=== PATIENT | female | born 1985 | race Caucasian/White ===

== ENCOUNTER 2024-01-24 10:48 | Emergency (ER) | payer BC, SELFPAY ==
[2024-01-24 10:52] VITALS: BP 155/89
--- NOTE | 2024-01-24 11:30 | ED.GENMED ---
History of Present Illness
General
Chief Complaint: Abdominal Symptoms
Source: patient
Exam Limitations: none
Time Seen by Provider: 01/24/24 10:57
Nursing documentation reviewed up to this point in time: agreed with
History of Present Illness
History of Present Illness:
38-year-old female with a past medical history of hypertension, hyperlipidemia, asthma, prior history of C. difficile infection presents to the emergency room for evaluation of abdominal pain and diarrhea. Patient reports that she started getting
sick with viral URI symptoms a little over a week ago and then 7 days ago started with diarrhea and she says she has had 10+ daily episodes of liquid diarrhea since. No blood in her diarrhea. She denies any nausea or vomiting. She says she does
get crampy abdominal pain and it has been mostly in the left lower quadrant also for the past week. She says that she has a history of C. difficile infection in the past after she was treated for strep throat with antibiotics. She says that
because of the amount of diarrhea she was worried it could be C. difficile once again and so she went to urgent care initially to be assessed. She was referred from urgent care to the emergency room to be further evaluated. She denies any fever or
chills. She denies any urinary symptoms. Denies any other complaints. She denies any recent antibiotics. Denies any recent travel.
Review of Systems
Review of Systems
All Other Systems: ROS reviewed and negative except as documented in HPI and ROS
Constitutional: Denies fever
Respiratory: Denies trouble breathing
Cardiac: Denies chest pain
ABD/GI: Reports abdominal pain and diarrhea; Denies vomiting, bloody stools or black stools
: Denies dysuria, frequency or flank pain
Musculoskeletal: Denies neck pain or back pain
Phy Exam
Physical Exam
Physical Exam:
General: Awake, alert, oriented x3; no acute distress
Head: Normocephalic, atraumatic
Eyes: Conjunctiva normal, EOMI
Throat: Airway intact, mucous membranes appear moist
Neck: Trachea midline, supple without meningismus
Lungs: Clear to auscultation bilaterally, no wheezing, rales, rhonchi
Heart: Regular rate and rhythm, no murmurs, gallops, or rubs
Abd: Soft, non distended, mildly tender left lower quadrant with no peritoneal signs
Neuro: No gross deficits
Skin: no rash
Extremities: No edema in extremities, warm and well-perfused
Scores
Heart Failure Risk
Heart Failure Risk Score: Not Applicable
Heart Score for Chest Pain Patients
STEMI patient?: Not applicable
Withdrawal Assessment of Alcohol
Withdrawal Assessment Completed?: Not applicable
Course
Orders/Labs/Results
Orders:
Orders
01/24/24 11:11
Iohexol [Omnipaque] See Protocol PO NOW STA
01/24/24 11:13
Test Result ONCE
01/24/24 11:18
CT Abd/pel Without Iv Or Oral Urgent
Comment:
Reason For Exam: LLQ abd pain
01/24/24 11:24
Complete Blood Count/With Diff Urgent
Comprehensive Metabolic Panel Urgent
HCG, Serum Qualitative Screen Urgent
STOOL [C difficile Antigen & Toxins] Urgent
CHAD Source: Feces/Stool
Specimen Description:
Date Specimen was Collected: 01/24/24
Time Specimen was Collected: 11:23
Stool Culture Urgent
CHAD Source: Feces/Stool
Specimen Description:
Date Specimen was Collected: 01/24/24
Time Specimen was Collected: 11:23
Abnormal Lab Results
01/24/24
11:24
WBC 3.7 L 10^3/uL
(4.8-10.8)
Monocytes % 11.8 H %
(1.7-9.3)
Eosinophils % 6.1 H %
(0-6)
AST 39 H U/L
(14-36)
01/24/24 11:24
01/24/24 11:24
Vital Signs
Initial and Last Documented VS:
Initial Vital Signs
Temp Pulse Resp BP Pulse Ox
36.4 C 61 18 155/89 100
01/24/24 10:52 01/24/24 10:52 01/24/24 10:52 01/24/24 10:52 01/24/24 10:52
Last Documented Vital Signs
Temp Pulse Resp BP Pulse Ox
36.4 C 64 16 141/87 97
01/24/24 10:52 01/24/24 13:54 01/24/24 13:54 01/24/24 13:54 01/24/24 13:54
MDM/Problems Addressed
Differential Diagnosis Includes:
C. difficile/infectious colitis, gastroenteritis, diverticulitis
MDM/Problems Addressed:
38-year-old female presents with profuse diarrhea and crampy left lower quadrant abdominal pain for the past week that was preceded by mild viral URI symptoms. Hypertensive otherwise normal vitals. Exam as above. Check labs including a CBC and a
CMP. Will check an hCG. Will check stool studies including C. difficile. Provide IV fluids. Check CT abdomen pelvis. Reassess after the above.
Patient reports that she has a severe anaphylactic reaction to IV contrast. She had such a severe reaction past that she is even hesitant to attempt p.o. contrast�discussed with radiologist and although risk of reaction from oral contrast in
patients with IV dye allergy is quite low it is not 0 risk. Discussed with radiology and will instead proceed with noncontrast study.
Labs reviewed: CBC shows slight leukopenia with a WBC of 3.7 which at least suggests a viral process, CMP no clinically significant abnormalities. hCG negative. CT shows no acute pathology. Patient's C. difficile was negative here. At this point
clinical suspicion is for viral enteritis/colitis. She has no electrolyte derangements despite her report of profuse diarrhea. I encouraged her to continue good p.o. hydration. Suggested trial of Imodium or Pepto-Bismol. I think she is stable
for discharge at this point. She feels comfortable with this plan. Spoke about return precautions and all questions answered.
*Radiology
Radiology exam reviewed: radiology read reviewed
*Pulse Oximetry
Patient hypoxic: no
*Critical Care Note
Total Time (30-74mins, 75-104mins- exclusive of procedures): Not Applicable
Data Reviewed
Source: patient and records
Patient Management
Discussion with other providers: Radiologist (Discussed with radiologist)
ED Attending Note
-
Portions of this chart may have been created with voice recognition software.� Occasional wrong word or��sound alike� substitutions may have occurred due to the inherent limitations of voice recognition software.
Discharge Plan
Departure
Patient Disposition: Home (Routine Discharge)
Date of Disposition: 01/24/24
Time of Disposition: 13:43
Patient with high blood pressure during this ER visit?: Yes
Discharge Problem:
Abdominal pain, Diarrhea
Instructions: Diarrhea in teens and adults, [place] Diet, Abdominal Pain
Referrals:
Rebekah Evans MD [Active] - Call in 1-3 days for appt
Salas Sosa MD [Family Provider] -
Activity Restrictions/Additional Instructions:
Thank you for visiting the Emergency Department at [facility].
1. Please schedule a follow up appointment as directed. Call first thing tomorrow morning to make an appointment.
2. If indicated, please take your medications as instructed and indicated on discharge paperwork.
3. If any of your symptoms do not improve, or persist, or become more severe within 6-12 hours, please return to the emergency department for further care.
4. Please return to the emergency department if you develop a headache, neck pain/stiffness, fever greater than 100.4F, chest pain, shortness of breath, persistent nausea, vomiting, slurred speech, difficulty walking, numbness/tingling, weakness,
signs of infection or any other symptoms that are worrisome to you.
Please call [phone] if you have any questions.
Interventions
Interventions:
*Risk Screen - Suicide Last Done: 01/24/24 10:52
*General Assessment Last Done: 01/24/24 10:52
*Neglect/Abuse Screening Last Done: 01/24/24 10:52
ED- Fall Risk Assessment Last Done: 01/24/24 10:57
*ED COVID-19 Vaccine History Last Done: 01/24/24 10:52
*Nursing Disposition Last Done: 01/24/24 13:54
NB-Fqlvzr-Gpulzzbrsf Assessment Last Done: 01/24/24 10:57
Discharge Date and Time
Discharge Date/Time: 01/24/24 13:57
Print Language: GIBRALTARIAN
[2024-01-24 11:42] LABS: % Basophils 1.1 % (0-2); % Eosinophils 6.1 % (0-6); % Lymphocytes 34.2 % (20.5-51.1); % Monocytes 11.8 % (1.7-9.3); % Neutrophils 46.8 % (42.2-75.2); Absolute Eosinophils 0.2 10^3/uL (0-0.7); Absolute Lymphocytes 1.3 10^3/uL (1.2-3.4); Absolute Monocytes 0.4 10^3/uL (0.1-0.6); Absolute Neutrophils 1.8 10^3/uL (1.4-6.5); Hematocrit 38.8 % (37.0-47.0); Mean Corp Hgb Conc. 33.5 g/dL (33.0-37.0); Mean Corpuscular Hgb 28.1 pg (27.0-31.0); Mean Corpuscular Volume 83.8 fL (81.0-99.0); Nucleated Red Blood Cells % 0 %; Platelet Count 240 10^3/uL (130-400); Red Blood Cell Count 4.63 10^6/uL (4.20-5.40); Red Cell Dist. Width 12.8 % (11.5-14.5); White Blood Cell Count 3.7 10^3/uL (4.8-10.8)
[2024-01-24 11:56] LABS: HCG, Serum Qualitative Screen Negative
[2024-01-24 11:58] LABS: ALT (SGPT) 34 U/L (0-35); AST (SGOT) 39 U/L (14-36); Albumin 4.9 g/dl (3.5-5.0); Alkaline Phosphatase 58 U/L (38-126); Blood Urea Nitrogen 11 mg/dl (7-17); Calcium 10.2 mg/dl (8.4-10.2); Carbon Dioxide 28 mmol/L (22-30); Chloride 103 mmol/L (98-107); Glucose 96 mg/dl (70-99); Potassium 4.7 mmol/L (3.5-5.1); Sodium 138 mmol/L (135-145); Total Bilirubin 0.7 mg/dl (0.2-1.3); Total Protein 7.5 g/dl (6.3-8.2); eGFR > 60.00
[2024-01-24 12:17] VITALS: BP 148/78
[2024-01-24 13:54] VITALS: BP 141/87
== END 2024-01-24 13:57 | disposition home or self-care (01) ==
LOC: EMR 10:48
PROVIDERS: EMERGENCY PHYSICIAN Emergency Medicine; FAMILY PHYSICIAN Internal Medicine
DX: R19.7 Diarrhea, unspecified (principal); R10.32 Left lower quadrant pain; I10 Essential (primary) hypertension; E78.5 Hyperlipidemia, unspecified; J45.909 Unspecified asthma, uncomplicated
CPT/HCPCS: 99284; 74176; 80053; 84703; 85025; 87045; 87046; 87324; 87427; 87449

== ENCOUNTER 2024-10-28 14:01 | Observation (INO) | payer BC, SELFPAY ==
[2024-10-28 10:04] VITALS: BP 131/81
[2024-10-28 10:34] LABS: % Eosinophils 1.4 % (0-6); % Immature Granulocytes 0.2 % (0-0.5); % Lymphocytes 25.6 % (20.5-51.1); % Monocytes 8.1 % (1.7-9.3); % Neutrophils 63.7 % (42.2-75.2); Absolute Eosinophils 0.1 10^3/uL (0-0.7); Absolute Lymphocytes 1.1 10^3/uL (1.2-3.4); Absolute Monocytes 0.3 10^3/uL (0.1-0.6); Absolute Neutrophils 2.7 10^3/uL (1.4-6.5); Hematocrit 37.9 % (37.0-47.0); Hemoglobin 12.4 g/dL (12.0-16.0); Mean Corp Hgb Conc. 32.7 g/dL (33.0-37.0); Mean Corpuscular Hgb 28.3 pg (27.0-31.0); Mean Corpuscular Volume 86.5 fL (81.0-99.0); Mean Platelet Volume 9.9 fL (7.4-10.4); Nucleated Red Blood Cells % 0 %; Platelet Count 225 10^3/uL (130-400); Red Blood Cell Count 4.38 10^6/uL (4.20-5.40); Red Cell Dist. Width 12.6 % (11.5-14.5); White Blood Cell Count 4.2 10^3/uL (4.8-10.8)
[2024-10-28 10:41] LABS: HCG, Serum Qualitative Screen Negative
[2024-10-28 10:45] LABS: ALT (SGPT) 16 U/L (0-35); AST (SGOT) 21 U/L (14-36); Albumin 4.2 g/dl (3.5-5.0); Alkaline Phosphatase 49 U/L (38-126); Blood Urea Nitrogen 12 mg/dl (7-17); Calcium 9.8 mg/dl (8.4-10.2); Carbon Dioxide 30 mmol/L (22-30); Chloride 101 mmol/L (98-107); Glucose 115 mg/dl (70-99); Potassium 4.8 mmol/L (3.5-5.1); Sodium 138 mmol/L (135-145); Total Bilirubin 0.7 mg/dl (0.2-1.3); Total Protein 6.9 g/dl (6.3-8.2); eGFR > 60.00
[2024-10-28 11:57] VITALS: BP 124/77
--- NOTE | 2024-10-28 12:04 | ED.GENMED ---
History of Present Illness
General
Chief Complaint: Dizziness
Time Seen by Provider: 10/28/24 11:50
History of Present Illness
History of Present Illness:
39-year-old female with history of hypertension, hyperlipidemia, and prior cerebellar stroke presents the emergency department for evaluation of severe vertigo and tinnitus as well as hearing loss for the last 4 days. Vertigo seems to improve when
at rest however is not fully resolved and she is having difficulty ambulating secondary to symptoms. Saw her outpatient neurologist today who sent her to the ED for MR imaging. No chest pain or shortness of breath. Denies illicit substance use.
She is maintained on aspirin and statins for her prior stroke
Review of Systems
Review of Systems
Allergies reviewed?: Yes
All Other Systems: ROS reviewed and negative except as documented in HPI and ROS
Phy Exam
Physical Exam
Physical Exam:
GEN: Well appearing, NAD, WDWN
HEENT: Oral mucosa moist, no scleral icterus, no nasal congestion
Cardiac: Regular rate
Lung: No respiratory distress, no tachypnea
MSK: No gross deformity or injuries
Skin: Good color, no pallor or jaundice, no rashes
Neuro: AO x3; CN II-XII grossly intact. BUE strength 5/5 in all martin, sensation intact and symmetric. BLE strength 5/5 in all martin, sensation intact and symmetric. No nystagmus
Psych: Calm, cooperative
Course
Orders/Labs/Results
Orders:
Orders
10/28/24 Breakfast
Cholesterol Lowering
At Your Request: Full Participation
Does patient need a safe tray?: No
Cholesterol Lowering: Sodium, 2 Gram
10/28/24 10:09
Test Result ONCE
10/28/24 10:19
Complete Blood Count/With Diff Urgent
Comprehensive Metabolic Panel Urgent
HCG, Serum Qualitative Screen Urgent
10/28/24 13:27
MR Brain W/o & With Contrast Urgent
Comment:
Reason For Exam: vertigo, difficulty
Recent pill cam endoscopy?: No
MR Cervical Spine Without & W Urgent
Comment:
Reason For Exam: pathological hyperreflexia b/l LE
Recent pill cam endoscopy?: No
10/28/24 13:32
Admit/Transfer Patient As Directed
Co-Sign Provider:
Level of Care: Observation services
Assign to:: Telemetry
Physician / Group: preston
Diagnosis: peripheral vertigo
Reason for Telemetry: Arrhythmia
Date to Stop Telemetry: 10/31/24
Time to Stop Telemetry: 11:00
10/28/24 13:33
PRN Pain Medication Management As Directed
May give lesser potent ordered pain med per pt: Yes
preference::
Protocol:: Medication orders for pain may be administered in a
manner that supports deferring to patient preference
when the pt is:
- Requesting an ordered lesser potent pain medication.
Least to most potent pain medications are defined
as: acetaminophen < NSAID < tramadol < opioids
(morphine, oxycodone, hydromorphone).
- Requesting a lesser dose of the same medication IF
ORDERED.
- Requesting a less intrusive route of administration
if both routes are prescribed by the provider (PO <
IV).
10/28/24 13:34
Code Status As Directed
Resuscitation Status: Full Code
10/28/24 13:42
SAMEERA, IgG Reflex to HEp-2 [S] Routine
B12 [Vitamin B12] Routine
CRP [C-Reactive Protein] Routine
D-Dimer Routine
Magnesium Routine
TSH Reflex To Free T4 Routine
10/31/24 11:00
DC Protocol for Telemetry ONCE
Abnormal Lab Results
10/28/24
10:19
WBC 4.2 L 10^3/uL
(4.8-10.8)
MCHC 32.7 L g/dL
(33.0-37.0)
Absolute Lymphs (auto) 1.1 L 10^3/uL
(1.2-3.4)
Glucose 115 H mg/dl
(70-99)
10/28/24 10:19
10/28/24 10:19
Vital Signs
Initial and Last Documented VS:
Initial Vital Signs
Temp Pulse Resp BP Pulse Ox
98.2 F 76 16 131/81 99
10/28/24 10:04 10/28/24 10:04 10/28/24 10:04 10/28/24 10:04 10/28/24 10:04
Last Documented Vital Signs
Temp Pulse Resp BP Pulse Ox
98.2 F 79 18 125/76 98
10/28/24 10:04 10/28/24 15:12 10/28/24 15:12 10/28/24 15:12 10/28/24 15:12
MDM/Problems Addressed
MDM/Problems Addressed:
After consultation with neurology will admit for further management and MRI
*Critical Care Note
Total Time (30-74mins, 75-104mins- exclusive of procedures): Not Applicable
ED Attending Note
-
Portions of this chart may have been created with voice recognition software.� Occasional wrong word or��sound alike� substitutions may have occurred due to the inherent limitations of voice recognition software.
Discharge Plan
Departure
Patient Disposition: Admit
Date of Disposition: 10/28/24
Time of Disposition: 13:06
Admit to: Med/Surg
Presentation/result/management discussed w/ accepting MD/DO: Hospitalist
Discharge Problem:
Vertigo
Interventions
Interventions:
*Risk Screen - Suicide Last Done: 10/28/24 10:04
*General Assessment Last Done: 10/28/24 10:04
*Neglect/Abuse Screening Last Done: 10/28/24 10:04
*ED- Fall Risk Assessment Last Done: 10/28/24 10:59
*ED COVID-19 Vaccine History Last Done: 10/28/24 10:04
ED- Neurological Assessment Last Done: 10/28/24 11:02
ED Swallowing Screen Last Done: 10/28/24 11:02
--- NOTE | 2024-10-28 12:15 | CON.NEURO ---
Consultation
Order
Date of Consultation: 10/28/24
Requesting Provider: Lovely SANDERS
Reason for Consult: Vertigo
Neurology Consultation Note.
HPI: This is a 39-year-old right-handed woman who presented to [facility]
The patient reports experiencing vertigo and tinnitus for the past 4 days. The vertigo is described as constant, worse with with turning her head to the left or right and associated nausea and imbalance.
The patient also reports a current headache. She has a history of migraines with aura. The patient is not currently on any prophylactic or rescue regimen for her migraines, stating she tries not to take anything due to medication interactions with
her blood pressure treatment.
The patient's medical history of radiographic infarcts?. She has a long-standing history of hypertension since her twenties, currently treated with labetalol. The patient also mentions a history of high cholesterol since childhood.
Recently, the patient had a change in her blood pressure medication. She was taken off valsartan due to dizziness and her labetalol dose was doubled. She has a loop recorder implanted about a year ago, with no reported events.
Ms. Lopez was recently seen by ENT and was diagnosed with right otosclerosis and hearing impairment.
ER VS: 124/77, 67, 16, afebrile.
PDMP:Lorazepam 0.5 Mg 30 tablets filled in on 09/24/24, 08/05/2024
Labs: WBCs�4.2, absolute lymphocyte count�1.1, normal sodium, glucose�115, normal sodium,
PMH:HTN, DLP, migraine with aura, right otosclerosis, Raynaud's phenomena
PSH: ILR, reduction mammoplasty
SH: , has 2 children, works in elementary school, non-smoker, no history excessive alcohol
FH: Father from leukemia at the age of 70, mother�skin cancer
All: Iodine, Reglan
ROS: Constitutional: Negative. Negative for chills, fever and unexpected weight change.
HENT: Positive for hearing impairment, R tinnitus, vertigo
Eyes: Negative. Negative for photophobia, pain and visual disturbance.
Respiratory: Negative for cough, choking and shortness of breath.
Cardiovascular: Negative for chest pain, palpitations and leg swelling.
Gastrointestinal: Negative for abdominal pain and vomiting.
Endocrine: Negative. Negative for cold intolerance.
Genitourinary: Negative for dysuria, flank pain and urgency.
Musculoskeletal: Negative for back pain, gait problem, neck pain and neck stiffness.
Skin: Negative for rash.
Allergic/Immunologic: Negative. Negative for immunocompromised state.
Neurological: Negative for dizziness, tremors, seizures, speech difficulty, numbness and headaches.
Psychiatric/Behavioral: Positive anxiety
General: Well developed. In no acute distress.
Cardio: Regular rate and rhythm without murmur. Extremities are without cyanosis or edema.
Neuro:
Mental Status: Alert, oriented to person, place, and date. Normal attention and recall. Good fund of knowledge. Follows complex requests across the midline. Comprehension, naming, and repetition intact. Depressed mood
Cranial Nerves: Pupils are equally round and reactive to light. EOMs full. Visual martin full to confrontation. No ptosis. No nystagmus. V1-V3 intact to light touch and pinprick bilaterally, symmetric. Face symmetric. Normal hearing AU. The
palate elevated well. SCMs and traps 5/5. Tongue midline. No dysarthria.
Motor: Normal bulk and tone. No pronator or arm drift. Strength 5/5 throughout. No clonus.
Reflexes: 3+ throughout the upper extremities and knees. 4/2 in AJs. Plantar responses flexor bilaterally. Gomez's�positive bilaterally
Sensory: Normal vibration and JPS.
Coordination: No dysmetria or tremor.
Gait: Normal stance, stride, difficulties jumping on the left foot.
Assessment and Plan:
I. Probably peripheral vertigo
II. Pathological hyperreflexia
III. JOSE A, MDD
- Continue Telemetry monitoring
- Please obtain brain and C-spine MRI with and without gadolinium
- Meclizine 25 mg every 8 hours as needed, lorazepam 0.5 mg
- Aspirin 81 mg once a day
- Please obtain medical records from patient's neurologist
- PT
- DVT prophylaxis.
I personally reviewed all radiology and labs along with past medical records pertinent to current medical problems. Total time spent in patient care is 60 minutes.
Thank you for allowing us to participate in the care of this patient. We will continue to follow. Please do not hesitate to contact us with any questions or concerns.
Subjective/Objective
Subjective Data
Date of Service: October 28, 2024
Objective Data
Vital Signs
Temp Pulse Resp BP Pulse Ox
36.8 C 67 16 124/77 100
10/28/24 10:04 10/28/24 11:57 10/28/24 12:03 10/28/24 11:57 10/28/24 11:57
Lab Results
10/28/24 10:19
10/28/24 10:19
Sodium 138 mmol/L (135-145) 10/28/24 10:19
Potassium 4.8 mmol/L (3.5-5.1) 10/28/24 10:19
BUN 12 mg/dl (7-17) 10/28/24 10:19
Glucose 115 mg/dl (70-99) H 10/28/24 10:19
Calcium 9.8 mg/dl (8.4-10.2) 10/28/24 10:19
Patient Allergies
Iodinated Contrast Media Allergy (Mild, Verified 10/28/24 10:08)
Unknown
metoclopramide [From Reglan] Allergy (Mild, Verified 10/28/24 10:08)
Vomiting
Vital Signs and Labs
-
Vital Signs and Labs:
Vital Signs
Temp Pulse Resp BP Pulse Ox
36.8 C 67 16 124/77 100
10/28/24 10:04 10/28/24 11:57 10/28/24 12:03 10/28/24 11:57 10/28/24 11:57
Lab Results
10/28/24 10:19
10/28/24 10:19
Sodium 138 mmol/L (135-145) 10/28/24 10:19
Potassium 4.8 mmol/L (3.5-5.1) 10/28/24 10:19
BUN 12 mg/dl (7-17) 10/28/24 10:19
Glucose 115 mg/dl (70-99) H 10/28/24 10:19
Calcium 9.8 mg/dl (8.4-10.2) 10/28/24 10:19
--- NOTE | 2024-10-28 13:07 | HPS.HSE ---
Addendum entered and electronically signed by JASSON Hernández 10/28/24 19:37:
39 year old not 1 year old .
Original Note:
Family Physician
-
Family Physician: Salas Sosa
Chief Complaint
-
39 year old with PMH for Stroke, HTN, anxiety presented with
History of Present Illness
1-year-old female with history of hypertension, hyperlipidemia, and prior cerebellar stroke presents the emergency department for evaluation of severe vertigo and tinnitus as well as hearing loss for the last 4 days. yesterday she felt the spinning
sensation. today she as more off balance. she as complained of b/l hand weakness. she is complaining of frontal and back headache. denied fever, chills, chest pain, sob. denied abdominal pain vomiting or diarrhea. denied dysuria or hematuria. Saw
her outpatient neurologist today who sent her to the ED for MR imaging.
admitting for further management.
Medical History
Past Medical History
Past Medical History: Reports Other
Additional Past Medical History:
HTn
HLD
anxiety
CVA
Past Surgical History: Reports Other
Additional Past Surgical History:
tonsillectomy
breast reduction
loop recorder
Social History
Tobacco: Non-smoker
Alcohol: None
Drug: None
Personal:
Living: With Family
Family History
Family History: Not pertinent
Allergies / Home Medications
Allergies reflects when Allergies were last updated in [employer].
Home Medications with original date entered in [employer]
Allergy/Medication List:
Allergies
Allergy/AdvReac Type Severity Reaction Status Date / Time
Iodinated Contrast Media Allergy Mild Unknown Verified 10/28/24 10:08
metoclopramide [From Reglan] Allergy Mild Vomiting Verified 10/28/24 10:08
Review of Systems
-
Constitutional: Reports No Symptoms
EENT: Reports No Symptoms
Respiratory: Reports No Symptoms
Cardiac: Reports No Symptoms
Abdomen/GI: Reports No Symptoms
: Reports No Symptoms
Musculoskeletal: Reports No Symptoms
Skin: Reports No Symptoms
Neurological: Reports Dizzy, Headache and Weakness
Endocrine: Reports No Symptoms
Hematologic/Lymphatic: Reports No Symptoms
Psych: Reports No Symptoms
Physical Exam
Vital Signs
Vital Signs
Temp Pulse Resp BP Pulse Ox
98.2 F 67 16 124/77 100
10/28/24 10:04 10/28/24 11:57 10/28/24 12:03 10/28/24 11:57 10/28/24 11:57
Physical Exam
General: Well Developed, Well Nourished and No Apparent Distress
HEENT: NormoCephalic, Moist mucous membranes and Atraumatic
Respiratory: Clear
Cardiac: S1/S2 and Regular Rhythm; No Murmur or Rub
GI: Soft, Non Tender, Non Distended and Normal Bowel Sounds; No Organomegaly
Rectal: Deferred by Provider
Musculoskeletal: No Clubbing, No Cyanosis and No Edema
Skin: No Rash
Neuro: AO x 3 and Nonfocal/grossly intact
Psych: Calm
Laboratory Results
-
10/28/24 10:19
10/28/24 10:19
Laboratory Results
Total Bilirubin 0.7 mg/dl (0.2-1.3) 10/28/24 10:19
AST 21 U/L (14-36) 10/28/24 10:19
ALT 16 U/L (0-35) 10/28/24 10:19
Alkaline Phosphatase 49 U/L (38-126) 10/28/24 10:19
Data Reviewed
-
Lab Data: Labs Reviewed by me
Impression/Plan
-
#possible peripheral vertigo
- obtain MRI and C spine MRI
-meclizine prn
-lorazepam
-asa
-PT/OT
-neurology following patient
#essential HTN
-labetalol continued with hold parameter
#anxiety
-Prozac continued
#HLD
-statin continued
#DVT prophylaxis
-scd
#CODE status
-full code
--- NOTE | 2024-10-28 13:10 | W.PN.UPDATE ---
Update Note
Progress Note Update
This is an addendum to H&P written by CATALYST RECOVERY OPERATOR Katia English
I saw and examined the patient.
The CATALYST RECOVERY OPERATOR's note was reviewed and I agree with the note.
Comment:
Ms. Julian Lopez is a 39 yo woman with hx essential HTN, HLD, asthma, cerebellar CVA presents to the ER with vertigo.
Triage VS: T 98.2, P 76, RR 16, BP 131/81, SpO2 99%
On exam patient is awake, alert, in no distress; CV: S2, S2, RRR; Chest clear, no LE swelling. DALLIN, no facial asymmetry, tongue protrusion midline, no pronator drift, 5/5 strength upper and lower extremities, FNF WNL, no nystagmus
LABS: WBC 4.2, Hg 12.4, PLT 225, Na 138, K+ 4.8, CO2 30, BUN 12, Cr 0.7, Ca 9.8, T. Bili 0.7, AST 21, ALT 16
HCG negative
Vertigo
Hx Cerebellar CVA on imaging
-appreciate neurology eval
-admit to observation, telemetry
-MRI Brain w and w/out contrast; C Spine w and w/out contrast (given hyperreflexia b/l LE)
-neuro checks
-continue FLEXBOARD OPERATOR asa/statin
Essential HTN
HLD
*awaiting home med rec
DVT PPx
FULL CODE
[2024-10-28 14:11] LABS: Magnesium 2.1 mg/dl (1.6-2.3)
[2024-10-28 14:16] LABS: C-Reactive Protein < 5.00 mg/L (0.0-10.00)
[2024-10-28 14:46] LABS: TSH Reflex To Free T4 1.08 uIU/ml (0.47-4.68)
[2024-10-28 15:05] LABS: Vitamin B12 529 pg/ml (239-931)
[2024-10-28 15:06] LABS: D-Dimer < 0.27 ug/mlFEU (0.00-0.50)
[2024-10-28 15:11] VITALS: BMI 23.4
[2024-10-28 15:12] VITALS: BP 125/76
[2024-10-28 17:50] VITALS: BP 117/84
[2024-10-28 17:51] VITALS: BMI 23.0
[2024-10-28] MEDS: CRESTOR 40 MG PO (18:18)
[2024-10-28] MEDS: TYLENOL 650 MG PO (18:18)
[2024-10-28] MEDS: ANTIVERT 25 MG PO (18:18)
--- NOTE | 2024-10-28 18:30 | PTCARENOTE ---
Arrived to unit from ED and ambulated to bed. Complains of headache at this time. Tylenol and meclizine given. Oriented to room. Call cardona within reach.
[2024-10-28 19:30] VITALS: BP 114/71
[2024-10-28] MEDS: ASPIR LOW (ENTERIC COATED) 81 MG PO (20:49)
[2024-10-28] MEDS: TRANDATE 200 MG PO (20:49)
[2024-10-28 23:43] VITALS: BP 109/73
[2024-10-29 03:55] VITALS: BP 117/68
[2024-10-29 07:45] VITALS: BP 122/69
[2024-10-29] MEDS: TRANDATE 200 MG PO (09:32)
[2024-10-29] MEDS: PROZAC 60 MG PO (09:33)
--- NOTE | 2024-10-29 10:28 | W.PN.NEURO.1 ---
Today's Communication / Plan
-
.
Subjective/Objective
Subjective Data
Date of Service: October 29, 2024
Neurology follow-up note.
Ms. Lopez reports improvement of her vertigo since admission. Brain MRI showed chronic right cerebellar infarct. C-spine MRI showed no cord abnormalities.
CRP, vitamin B12, TFTs, magnesium, D-dimer�unremarkable.
PMH:HTN, DLP, migraine with aura, right otosclerosis, Raynaud's phenomena
PSH: ILR, reduction mammoplasty
SH: , has 2 children, works in elementary school, non-smoker, no history excessive alcohol
FH: Father from leukemia at the age of 70, mother�skin cancer
All: Iodine, Reglan
ROS: Constitutional: Negative. Negative for chills, fever and unexpected weight change.
HENT: Positive for hearing impairment, R tinnitus, vertigo
Eyes: Negative. Negative for photophobia, pain and visual disturbance.
Respiratory: Negative for cough, choking and shortness of breath.
Cardiovascular: Negative for chest pain, palpitations and leg swelling.
Gastrointestinal: Negative for abdominal pain and vomiting.
Endocrine: Negative. Negative for cold intolerance.
Genitourinary: Negative for dysuria, flank pain and urgency.
Musculoskeletal: Negative for back pain, gait problem, neck pain and neck stiffness.
Skin: Negative for rash.
Allergic/Immunologic: Negative. Negative for immunocompromised state.
Neurological: Negative for dizziness, tremors, seizures, speech difficulty, numbness and headaches.
Psychiatric/Behavioral: Positive anxiety
General: Well developed. In no acute distress.
Cardio: Regular rate and rhythm without murmur. Extremities are without cyanosis or edema.
Neuro:
Mental Status: Alert, oriented to person, place, and date. Normal attention and recall. Good fund of knowledge. Follows complex requests across the midline. Comprehension, naming, and repetition intact. Depressed mood
Cranial Nerves: Pupils are equally round and reactive to light. EOMs full. Visual martin full to confrontation. No ptosis. No nystagmus. V1-V3 intact to light touch and pinprick bilaterally, symmetric. Face symmetric. Normal hearing AU. The
palate elevated well. SCMs and traps 5/5. Tongue midline. No dysarthria.
Motor: Normal bulk and tone. No pronator or arm drift. Strength 5/5 throughout. No clonus.
Coordination: No dysmetria or tremor.
Gait: Normal stance, stride, difficulties jumping on the left foot.
Assessment and Plan:
I. Peripheral vertigo, right otosclerosis
II. Hyperreflexia
III. JOSE A, MDD
- Continue Telemetry monitoring
- Meclizine 25 mg every 8 hours as needed, lorazepam 0.5 mg
- Aspirin 81 mg once a day
- Outpatient neurology follow-up
I personally reviewed all radiology and labs along with past medical records pertinent to current medical problems. Total time spent in patient care is 36 minutes.
Thank you for allowing us to participate in the care of this patient. Please do not hesitate to contact us with any questions or concerns
Objective Data
Vital Signs
Temp Pulse Resp BP Pulse Ox
36.7 C 73 16 122/69 99
10/29/24 07:45 10/29/24 07:45 10/29/24 07:45 10/29/24 07:45 10/29/24 07:45
Lab Results
10/28/24 10:19
10/28/24 10:19
Sodium 138 mmol/L (135-145) 10/28/24 10:19
Potassium 4.8 mmol/L (3.5-5.1) 10/28/24 10:19
BUN 12 mg/dl (7-17) 10/28/24 10:19
Glucose 115 mg/dl (70-99) H 10/28/24 10:19
Calcium 9.8 mg/dl (8.4-10.2) 10/28/24 10:19
Vitamin B12 529 pg/ml (026-848) 10/28/24 13:42
Patient Allergies
Iodinated Contrast Media Allergy (Verified 10/28/24 17:42)
Unknown
metoclopramide [From Reglan] Allergy (Verified 10/28/24 17:42)
Vomiting
Vital Signs and Labs
-
Vital Signs and Labs:
Vital Signs
Temp Pulse Resp BP Pulse Ox
36.7 C 73 16 122/69 99
10/29/24 07:45 10/29/24 07:45 10/29/24 07:45 10/29/24 07:45 10/29/24 07:45
Lab Results
10/28/24 10:19
10/28/24 10:19
Sodium 138 mmol/L (135-145) 10/28/24 10:19
Potassium 4.8 mmol/L (3.5-5.1) 10/28/24 10:19
BUN 12 mg/dl (7-17) 10/28/24 10:19
Glucose 115 mg/dl (70-99) H 10/28/24 10:19
Calcium 9.8 mg/dl (8.4-10.2) 10/28/24 10:19
Vitamin B12 529 pg/ml (046-041) 10/28/24 13:42
Medications
-
Medications:
Generic Name Dose Route Start Last Admin
Trade Name Freq PRN Reason Stop Dose Admin
Acetaminophen 650 mg 10/28/24 17:41 10/28/24 18:18
Acetaminophen 325 Mg Tablet PO 11/25/24 17:40 650 mg
Q4HPRN PRN Administration
mild pain/SHULTZ/temp> 100.4F
Aspirin 81 mg 10/28/24 20:00 10/28/24 20:49
Aspirin 81 Mg (Enteric Coated) Tablet PO 11/25/24 19:59 81 mg
DAILY@2000 ALPA Administration
Bisacodyl 10 mg 10/28/24 17:41
Bisacodyl 10 Mg Rectal Suppository RECTAL 11/25/24 17:40
[id number] PRN
constipation
Fluoxetine HCl 60 mg 10/29/24 08:00 10/29/24 09:33
Fluoxetine 20 Mg Capsule PO 11/26/24 07:59 60 mg
DAILY ALPA Administration
Labetalol HCl 200 mg 10/28/24 20:00 10/29/24 09:32
Labetalol 200 Mg Tablet PO 11/25/24 19:59 200 mg
BID ALPA Administration
Lorazepam 0.5 mg 10/28/24 17:41
Lorazepam 0.5 Mg Tablet PO 11/25/24 17:40
Q6HPRN PRN
vertigo/anxiety
Meclizine HCl 25 mg 10/28/24 17:41 10/28/24 18:18
Meclizine 25 Mg Tablet PO 11/25/24 17:40 25 mg
Q8HPRN PRN Administration
veritgo
Polyethylene Glycol 17 grams 10/28/24 17:41
Polyethylene Glycol Powder 17 Grams Packet PO 11/25/24 17:40
DAILYPRN PRN
constipation
Rosuvastatin Calcium 40 mg 10/28/24 18:00 10/28/24 18:18
Rosuvastatin (Crestor) 40 Mg Tablet PO 11/25/24 17:59 40 mg
QPM ALPA Administration
Senna/Docusate Sodium 1 tablet 10/28/24 17:41
Docusate W/Senna (Pat-Colace) Tablet PO 11/25/24 17:40
BIDPRN PRN
constipation
Sodium Chloride 0 flush 10/28/24 18:00
Sodium Chloride 0.9% (Flush) Syringe IV 11/25/24 17:59
PER PROTOCOL ALPA
Home Medications
-
Home Medications
aspirin 81 mg tablet,delayed release 81 mg PO DAILY Blood Clot Prevention/Tx 10/28/24
fluoxetine 20 mg capsule 60 mg PO DAILY Mental Health/Anxiety 10/28/24
labetalol 200 mg tablet 200 mg PO BID Heart Disease/Condition 10/28/24
lorazepam 0.5 mg tablet 0.5 mg PO DAILYPRN PRN anxiety 10/28/24
rosuvastatin 40 mg tablet (Crestor) 40 mg PO QPM High Cholesterol 10/28/24
meclizine 25 mg tablet 25 mg PO Q8HPRN PRN veritgo 1 week #21 tabs 10/29/24
[2024-10-29 11:35] VITALS: BP 104/61
--- NOTE | 2024-10-29 11:59 | W.PN.HOSP.TC ---
Today's Communication/Plan
-
Discharge
1 week of meclizine
Follow-up OP with PCP
Assessment / Plan
Assessment / Plan
#Peripheral vertigo
#H/O cerebellar infarct
-MRI brain and C-spine were negative for new findings, demonstrated old infarct
-Continue on home statin and aspirin, evaluated by neurology
-Has improved somewhat with meclizine
-1 week of PRN meclizine, OP follow-up with PCP
#essential HTN
-labetalol continued with hold parameter
#anxiety
-Prozac continued
#HLD
-statin continued
DVT prophylaxis: scd
CODE status: full code
Anticipated Discharge: Today
Subjective/Interval History
-
Date of Service: October 29, 2024
Seen and examined at the bedside. No acute events since admission. AFVSS
MRI of C-spine and brain negative for acute findings, redemonstrated old infarct of the cerebellum
Patient denies any new complaints. Still has some vertigo but improved, would like to go home
Objective Data
-
Vital Signs:
Vital Signs
Temp Pulse Resp BP Pulse Ox
98.1 F 73 16 122/69 99
10/29/24 07:45 10/29/24 07:45 10/29/24 07:45 10/29/24 07:45 10/29/24 07:45
I&O
10/28/24 10/29/24 10/30/24
06:59 06:59 06:59
Intake Total 480 / 480
Balance 480 / 480
Review of Systems
-
History Source: Patient
All other systems: Reviewed and negative
Physical Exam
-
General: Well Developed, Well Nourished, No Apparent Distress and Comfortable
HEENT: Normocephalic, Atraumatic, Moist Mucous Membranes and Anicteric
Respiratory: Clear to Auscultation and Non Labored Respirations
Cardiac: Regular Rhythm and S1/S2; Negative Murmur, Rub or Gallop
GI: Soft, Nontender, Nondistended and Normal Bowel Sounds
Musculoskeletal: No Clubbing, No Cyanosis, No Edema and Normal Gait & Station
Skin: Warm, Dry and Normal Turgor; Negative Rash
Neuro: AO x 3, Nonfocal/Grossly Intact and Other (No nystagmus); Negative Tremors
Psych: Calm
Data Reviewed
-
MRI: Report Reviewed by me and Discussed with Physician (Neurologist)
Labs: Labs Reviewed by me and Discussed with Patient
--- NOTE | 2024-10-29 13:34 | W.DCSUMMARY ---
Discharge Summary
Discharge Data
Date of Admission: 10/28/24
Date of Discharge: 10/29/24
Total time spent discharging patient (in min): 31
-
Pending Results: No
Hospital Course
39-year-old female with hypertension, hyperlipidemia, H/O cerebellar CVA with loop recorder in place that presented to the hospital with vertigo and tinnitus of the right ear over 4 days time. Mention she felt a spinning sensation and felt more off
balance. Was evaluated by her outpatient neurologist who recommended her coming to the ED for MR imaging. Hemodynamically stable and no significant focal deficits or nystagmus on exam. Was evaluated by neurology in the hospital. MRI of brain
without contrast and C-spine without contrast redemonstrated previous cerebellar infarct however did not show any signs of new acute infarct nor bleeding nor mass effect. She was started on meclizine with improvement. Recommend that she follows up
with her neurologist and PCP. Should also follow-up with otolaryngology for consideration of treatment for M�ni�re's disease if indicated.
Discharge Plan
-
Patient Disposition: Home (Routine Discharge)
Discharge Diagnosis/Procedures: Vertigo
Inner Ear fullness
Condition: Good
Diet: Low Cholesterol and No added salt
Activity: As tolerated
Driving Restrictions: No driving for 24 hours
Bathing Restrictions: None
Blood Work: N/A
Others Tests: N/A
Activity Restrictions/Additional Instructions:
Do not drive if you are vertigo symptoms are severe
Instructions: Vertigo (a type of dizziness)
Referrals:
Salas Sosa MD [Family Provider] -
Additional Discharge Medication Instructions: Use meclizine 25 mg every 8 hours as needed for dizziness. If ineffective can increase to 50 mg every 8 hours
Prescriptions:
New
meclizine 25 mg Tablet
25 mg PO Q8HPRN PRN (Reason: veritgo) 7 Days Qty: 21 0RF
Continued
labetalol 200 mg Tablet
200 mg PO BID
aspirin 81 mg Tablet,Delayed Release (Dr/Ec)
81 mg PO DAILY
lorazepam 0.5 mg Tablet
0.5 mg PO DAILYPRN PRN (Reason: anxiety)
fluoxetine 20 mg Capsule
60 mg PO DAILY
rosuvastatin [Crestor] 40 mg Tablet
40 mg PO QPM
Discharge Orders:
Discharge Patient (As Directed); Ordered 10/29/24
Ordered By: Lm Ibanez
Discharge Date and Time
Discharge Date/Time: 10/29/24 13:05
Print Language: CROATIAN
[2024-10-31 12:44] LABS: ANA, IgG Reflex to HEp-2 None Detected (None Detected)
== END 2024-10-29 13:05 | disposition home or self-care (01) ==
LOC: 4 EAST ACU 14:01
PROVIDERS: Emergency Medicine; ADMITTING PHYSICIAN Hospitalist; ATTENDING PHYSICIAN Internal Medicine; CONSULT PHYSICIAN Psychiatry & Neurology Neurology; EMERGENCY PHYSICIAN Emergency Medicine; FAMILY PHYSICIAN Internal Medicine
DX: R42 Dizziness and giddiness (principal); I10 Essential (primary) hypertension; E78.00 Pure hypercholesterolemia, unspecified; H93.11 Tinnitus, right ear; R26.2 Difficulty in walking, not elsewhere classified; R29.2 Abnormal reflex; I73.00 Raynaud's syndrome without gangrene; F41.1 Generalized anxiety disorder; F32.9 Major depressive disorder, single episode, unspecified; R51.9 Headache, unspecified; H80.91 Unspecified otosclerosis, right ear; Z91.041 Radiographic dye allergy status; Z86.73 Personal history of transient ischemic attack (TIA), and cerebral infarction without residual deficits; Z88.8 Allergy status to other drugs, medicaments and biological substances; Z80.6 Family history of leukemia; Z80.8 Family history of malignant neoplasm of other organs or systems; Z79.899 Other long term (current) drug therapy; Z90.89 Acquired absence of other organs; Z79.82 Long term (current) use of aspirin
CPT/HCPCS: 70553; 72156; 80053; 82607; 83735; 84443; 84703; 85025; 85379; 86038; 86140; 99285; A9575; G0378